=== PATIENT | male | born 1955 | race Caucasian/White ===

== ENCOUNTER 2022-02-15 11:37 | Inpatient (IN) | payer OTHER ==
[~2022-02-15] VITALS: Ht 182.9 cm; Wt 123.0 kg
[~2022-02-15 11:37] MED LIST: ASPI81CH43 GT; ATOR-47 PO; FURO1TAB33 PO; LISI20TA28 PO; METO25TA93 PO; POTA-220 PO; SITA50TA28 PO; TICA90TA PO
[2022-02-15 12:05] LABS: Urine WBC None Seen /hpf (0 - 3)
[2022-02-15 12:10] LABS: Basophils # (auto) 0 10 ^3/uL (0-0.2); Basophils % (auto) 0.7 % (0.0-2.0); Eosinophils # (auto) 0.2 10 ^3/uL (0-0.8); Eosinophils % (auto) 2.9 % (0.0-7.0); Hematocrit 40.8 % (41.0-53.0); Hemoglobin 13.9 g/dL (13.5-17.5); Lymphocytes # (auto) 1.6 10 ^3/uL (0.4-5.4); Lymphocytes % (auto) 21.1 % (10.0-50.0); Mean Corpuscular Hemoglobin 28.8 pg (28.0-32.0); Mean Corpuscular Hgb Conc. 34.1 g/dL (32.0-36.0); Mean Corpuscular Volume 84.7 fL (80.0-100.0); Monocytes # (auto) 0.8 10 ^3/uL (0-1.3); Monocytes % (auto) 11.4 % (0.0-12.0); Neutrophils # (auto) 4.7 10 ^3/uL (1.6-8.6); Neutrophils % (auto) 63.9 % (37.0-80.0); Red Blood Cells 4.81 10^6/uL (4.5-5.90); Red Cell Distribution Width 14.1 % (11.8-14.3); White Blood Cell 7.4 10^3/uL (4.4-10.8)
[2022-02-15 12:27] LABS: Urine Bacteria NONE SEEN /hpf (None Seen); Urine Blood Negative /uL (Negative); Urine Specific Gravity 1.016 (1.001-1.035)
[2022-02-15 12:29] LABS: INR 1.1 (0.9-1.15); Partial Thromboplastin Time 29.5 sec (24.6-33.4)
[2022-02-15 12:33] LABS: Albumin 3.8 g/dL (3.4-5.0); Potassium 4.1 mmol/L (3.5-5.1)
[2022-02-15 12:36] LABS: BUN/Creatinine Ratio 13.8
[2022-02-15 12:39] LABS: Bilirubin, Total 1.6 mg/dL (0.2-1.0); Total Protein 7.6 g/dL (6.4-8.2)
[2022-02-15] MEDS ORDERED: CLOPIDOGREL BISULFATE 75 MG TAB PO ONE (13:15)
[2022-02-15] MEDS ORDERED: HEPARIN SODIUM (PORCINE) 5000 UNITS/ML 1ML VIAL IV ONE (13:15)
[2022-02-15] MEDS ORDERED: HEPARIN DRIP/D5W 100UNITS/ML 250 ML IV SCH ×2 (13:15→23:45)
[2022-02-15 13:55] LABS: INR 1.08 (0.9-1.15); Partial Thromboplastin Time 28.8 sec (24.6-33.4)
[2022-02-15] MEDS ORDERED: ONDANSETRON HCL 4 MG/2 ML VIAL IV PRN (15:15)
[2022-02-15] MEDS ORDERED: METOPROLOL TARTRATE 1MG/1ML-5ML VIAL IV PRN (15:15)
[2022-02-15] MEDS ORDERED: MORPHINE SULFATE INJ 2 MG/ml SYRG IV PRN (15:15)
[2022-02-15] MEDS ORDERED: ACETAMINOPHEN 325 MG TAB PO PRN (15:15)
[2022-02-15] MEDS ORDERED: NITROGLYCERIN 0.4 MG SL TAB SL PRN (15:15)
[2022-02-15] MEDS ORDERED: DEXTROSE (50%) 50ML SYRG IV PRN (15:30)
[2022-02-15 16:13] LABS: Cholesterol 90 mg/dL (< 200); HDL Cholesterol 39 mg/dL (40-59); LDL Cholesterol 44 mg/dL (< 100); Triglycerides 94 mg/dL (< 150)
[2022-02-15] MEDS ORDERED: RIVA10TA PO (17:27)
[2022-02-15] MEDS: ACCU-CHEK COMFORT CURVE STRIP VI SCH ×2 (17:46→22:08)
[2022-02-15] MEDS: InsuLIN REG 1unit/0.01ml Soln (100units/ml) SC SCH ×2 (17:46→22:00)
[2022-02-15] MEDS: ATORVASTATIN 20 MG TAB PO SCH (22:13)
[2022-02-15] MEDS: METOPROLOL TARTRATE 25 MG TAB PO SCH (22:15)
[2022-02-15 23:41] LABS: INR 1.09 (0.9-1.15); Partial Thromboplastin Time 35.3 sec (24.6-33.4)
[2022-02-16 04:12] LABS: Basophils # (auto) 0 10 ^3/uL (0-0.2); Basophils % (auto) 0.4 % (0.0-2.0); Eosinophils # (auto) 0.3 10 ^3/uL (0-0.8); Eosinophils % (auto) 4.4 % (0.0-7.0); Hemoglobin 12.6 g/dL (13.5-17.5); Lymphocytes # (auto) 1.8 10 ^3/uL (0.4-5.4); Lymphocytes % (auto) 28.6 % (10.0-50.0); Mean Corpuscular Hemoglobin 29.1 pg (28.0-32.0); Mean Corpuscular Hgb Conc. 34.2 g/dL (32.0-36.0); Mean Corpuscular Volume 85.1 fL (80.0-100.0); Monocytes # (auto) 0.6 10 ^3/uL (0-1.3); Monocytes % (auto) 9.2 % (0.0-12.0); Neutrophils # (auto) 3.7 10 ^3/uL (1.6-8.6); Neutrophils % (auto) 57.4 % (37.0-80.0); Red Blood Cells 4.35 10^6/uL (4.5-5.90); Red Cell Distribution Width 14.4 % (11.8-14.3); White Blood Cell 6.4 10^3/uL (4.4-10.8)
[2022-02-16 05:04] LABS: Chloride 109 mmol/L (98-107); Potassium 3.6 mmol/L (3.5-5.1); Sodium 141 mmol/L (136-145)
[2022-02-16 05:05] LABS: Anion Gap 11 (5-15); BUN/Creatinine Ratio 15.5; Blood Urea Nitrogen 20 mg/dL (7-18); Calcium 8.6 mg/dL (8.5-10.1); Carbon Dioxide 21 mmol/L (21-32); GFR African American 71 mL/min; GFR Non-African American 59 mL/min; Glucose 89 mg/dL (74-106)
[2022-02-16] MEDS: InsuLIN REG 1unit/0.01ml Soln (100units/ml) SC SCH ×4 (07:00→22:00)
[2022-02-16] MEDS: ACCU-CHEK COMFORT CURVE STRIP VI SCH ×4 (07:01→22:00)
[2022-02-16] MEDS: LISINOPRIL 5 MG TAB PO SCH (10:00)
[2022-02-16] MEDS: ASPirin 81 mg TAB PO SCH (10:00)
[2022-02-16] MEDS: FAMOTIDINE 20 MG TAB PO SCH (10:00)
[2022-02-16] MEDS: METOPROLOL TARTRATE 25 MG TAB PO SCH (10:00)
[2022-02-16] MEDS: CLOPIDOGREL BISULFATE 75 MG TAB PO SCH (10:00)
[2022-02-16 11:03] LABS: INR 1.08 (0.9-1.15); Partial Thromboplastin Time 38.9 sec (24.6-33.4)
[2022-02-16] MEDS ORDERED: HEPARIN DRIP/D5W 100UNITS/ML 250 ML IV SCH ×2 (12:00→20:30)
[2022-02-16 19:02] LABS: INR 1.03 (0.9-1.15)
[2022-02-17] VITALS (7 sets, daily range): BP systolic 135–156; BP diastolic 68–87
[2022-02-17] MEDS: ATORVASTATIN 20 MG TAB PO SCH (00:12)
[2022-02-17] MEDS: METOPROLOL TARTRATE 25 MG TAB PO SCH ×2 (00:13→10:09)
[2022-02-17 02:39] LABS: INR 1.03 (0.9-1.15)
[2022-02-17] MEDS ORDERED: LOSA25TA38 PO (02:55)
[2022-02-17] MEDS ORDERED: INSU1INJ13 SC (02:55)
[2022-02-17] MEDS ORDERED: SEMA4INJ SC (02:55)
[2022-02-17] MEDS ORDERED: EMPA1TAB PO (02:55)
[2022-02-17 06:04] LABS: Basophils # (auto) 0.1 10 ^3/uL (0-0.2); Basophils % (auto) 1.4 % (0.0-2.0); Eosinophils # (auto) 0.3 10 ^3/uL (0-0.8); Eosinophils % (auto) 4.2 % (0.0-7.0); Hematocrit 37.5 % (41.0-53.0); Hemoglobin 12.7 g/dL (13.5-17.5); Lymphocytes # (auto) 1.3 10 ^3/uL (0.4-5.4); Lymphocytes % (auto) 20.7 % (10.0-50.0); Mean Corpuscular Hemoglobin 28.8 pg (28.0-32.0); Mean Corpuscular Hgb Conc. 33.9 g/dL (32.0-36.0); Monocytes # (auto) 0.6 10 ^3/uL (0-1.3); Monocytes % (auto) 9.1 % (0.0-12.0); Neutrophils # (auto) 4.2 10 ^3/uL (1.6-8.6); Neutrophils % (auto) 64.6 % (37.0-80.0); Nucleated Red Blood Cells % 0.1 %; Red Blood Cells 4.42 10^6/uL (4.5-5.90); Red Cell Distribution Width 13.8 % (11.8-14.3); White Blood Cell 6.5 10^3/uL (4.4-10.8)
[2022-02-17 06:26] LABS: Potassium 3.7 mmol/L (3.5-5.1)
[2022-02-17 06:30] LABS: BUN/Creatinine Ratio 16.8; Calcium 8.7 mg/dL (8.5-10.1)
[2022-02-17] MEDS: InsuLIN REG 1unit/0.01ml Soln (100units/ml) SC SCH ×2 (07:00→11:32)
[2022-02-17] MEDS: ACCU-CHEK COMFORT CURVE STRIP VI SCH ×2 (07:06→11:28)
[2022-02-17] MEDS ORDERED: IOHEXOL 350 MG/ML 100ML IJ ONE (07:27)
[2022-02-17] MEDS ORDERED: IODIXANOL 320MG/ML 100ML BTL IV ONE (07:27)
[2022-02-17] MEDS ORDERED: LIDOCAINE 2%HCL (LOCAL ANESTH.) INJ 10ml MDV ONE (07:27)
[2022-02-17] MEDS ORDERED: HEPARIN SODIUM (PORCINE) 5000 UNITS/ML 1ML VIAL ONE (07:33)
[2022-02-17] MEDS ORDERED: ANGIOMAX 250 MG VIAL IV ONE (07:33)
[2022-02-17] MEDS ORDERED: VERAPAMIL 2.5MG/ML INJ 2ML VIAL IV ONE (07:33)
[2022-02-17] MEDS ORDERED: fentaNYL CITRATE 100 MCG/2 ML VL ONE (07:33)
[2022-02-17] MEDS ORDERED: MIDAZOLAM HCL 2MG/2ML 2ml VIAL (1mg/ml) ONE (07:34)
[2022-02-17] MEDS ORDERED: SODIUM CHL 0.9% 0 ML ONE (07:34)
[2022-02-17] MEDS: FAMOTIDINE 20 MG TAB PO SCH (10:09)
[2022-02-17] MEDS: ASPirin 81 mg TAB PO SCH (10:09)
[2022-02-17] MEDS: LISINOPRIL 5 MG TAB PO SCH (10:10)
[2022-02-17] MEDS: CLOPIDOGREL BISULFATE 75 MG TAB PO SCH (10:10)
[2022-02-17 10:26] LABS: INR 1.03 (0.9-1.15); Partial Thromboplastin Time 26.8 sec (24.6-33.4)
== END 2022-02-17 13:09 | disposition home or self-care (01) | DRG 281 ==
LOC: ER 11:37 → TELE 15:13 → TELE-WESTW 02-17 01:29
PROVIDERS: ADMIT Hospitalist; ATTEND Hospitalist
PROC: 4A023N7 Measurement of Cardiac Sampling and Pressure, Left Heart, Percutaneous Approach (ICD-10-PCS; principal; 2022-02-17)
PROC: B211YZZ Fluoroscopy of Multiple Coronary Arteries using Other Contrast (ICD-10-PCS; 2022-02-17)
PROC: B215YZZ Fluoroscopy of Left Heart using Other Contrast (ICD-10-PCS; 2022-02-17)
PROC: 4B02XTZ Measurement of Cardiac Defibrillator, External Approach (ICD-10-PCS; 2022-02-17)
DX: I21.4 Non-ST elevation (NSTEMI) myocardial infarction (principal); I42.8 Other cardiomyopathies; E11.9 Type 2 diabetes mellitus without complications; F17.210 Nicotine dependence, cigarettes, uncomplicated; I10 Essential (primary) hypertension; I25.10 Atherosclerotic heart disease of native coronary artery without angina pectoris; E78.5 Hyperlipidemia, unspecified; I48.91 Unspecified atrial fibrillation; Z20.822 Contact with and (suspected) exposure to COVID-19; Z79.01 Long term (current) use of anticoagulants; Z82.49 Family history of ischemic heart disease and other diseases of the circulatory system; Z83.3 Family history of diabetes mellitus; Z95.5 Presence of coronary angioplasty implant and graft; Z95.810 Presence of automatic (implantable) cardiac defibrillator
CPT/HCPCS: 36415; 71045; 80048; 80053; 80061; 81001; 82962; 83036; 83880; 84484; 85025; 85610; 85730; 87426; 93005; 93306; 93458; 96365; 96376; 99152; 99291; G0378; J1815; J2001; J2250; J2405; Q9967

== ENCOUNTER 2024-05-05 12:39 | Inpatient (IN) | payer OTHER ==
[~2024-05-05] VITALS: Ht 365.8 cm; Wt 123.6 kg
[~2024-05-05 12:39] MED LIST changes: +EMPA1TAB PO; +INSU1INJ13 SC; -LISI20TA28 PO; +LOSA-533 PO; +RIVA10TA PO; +SEMA4INJ SC; -TICA90TA PO
--- NOTE | 2024-05-05 13:03 | ECG ---
[facility] Test Date: 2024-05-05 Test Time: 12:46:36 Pat Name: DAGO PERRY Department: ER Room: 0223T Gender: M Grease Monkey: [place] : 1955 Requested By: EMERGENCY EMERGENCY Order Number: [id number] Reading MD: Rahul Potts Measurements Intervals [place] Rate: 77 P: 92 NC: 141 QRS: 261 QRSD: 208 T: 70 QT: 478 QTc: 542 Interpretive Statements A-V dual-paced complexes w/ some inhibition No further analysis attempted due to paced rhythm Electronically Signed On 05-11-2024 16:54:15 PST by Rahul Potts Please click the below link to view image of tracing.
--- NOTE | 2024-05-05 13:03 | ED.PDOC ---
HPI Comments 68 year old male presents to the ED with chief complaint of chest pain. Patient reports that he has been experiencing chest pain for the past 2 hours, not improving over time and with associated SOB since last night. Patient relays that he has had similar chest pain in the past, but it normally self-resolves after a few minutes. Patient states he had the same symptoms before when his pacemaker was malfunctioning 5 years ago. Patient denies any N/V, dizziness, headache, blurred vision, numbness, or weakness. Time Seen by MD: 12:56 Reviewed Notes: Nurses Notes, Medications, Allergies Allergies: Coded Allergies: NO KNOWN ALLERGIES (Unverified , 04/29/19) Home Meds Reported Medications Semaglutide (Ozempic) 4 Mg/3 Ml Inj, 4 MG SC, INJ 02/17/22 Insulin Degludec (Tresiba Flextouch) 200 Unit/Ml Inj, 200 UNIT SC, INJ 02/17/22 Empagliflozin (Jardiance) 10 Mg Tab, 10 MG PO, TAB 02/17/22 Losartan Potassium (Losartan Potassium) 25 Mg Tab, 25 MG PO DAILY for 30 Days, MG 02/17/22 Rivaroxaban (XARELTO) 10 Mg Tab, 15 MG PO DAILY, TAB 02/15/22 Aspirin (Asa) 81 Mg Ch, 81 MG GT DAILY, TAB.CHEW 04/29/19 Sitagliptin-Metformin Hcl (JANUMET XR) 1 Tab Tab, 1 TAB PO BIDPC, TAB 04/29/19 Atorvastatin Calcium (ATORVASTATIN CALCIUM) 80 Mg Tab, 1 TAB PO DAILY, #30 TAB 5 Refills 04/29/19 Metoprolol Succinate (Metoprolol Succinate Er) 25 Mg Tab, 25 MG PO DAILY, TAB 04/29/19 Potassium Chloride (Klor-Con M20) 20 Meq Tab, 20 MEQ PO DAILY, TAB 04/29/19 Furosemide (Lasix) 20 Mg Tb, 1 TAB PO DAILY, #90 TAB 1 Refill 04/29/19 Information Source: Patient Mode of Arrival: Ambulatory Severity: Moderate Timing: Hours Duration: Since onset Prehospital treatment: None Location: Chest (L) Radiation: No Radiation Quality: Sharp Onset: At Rest Cardiac Risk Factors: HTN PE Risk Factors: None History of: Similar pain in past, NV Associated Signs and Symptoms: SOB Past Medical History PAST MEDICAL HISTORY: CAD, DM, HTN, NV Surgical History: Pacemaker, PTCA Family History Family History: Reviewed,noncontributory to illness, No family hx of Cancer, No family hx of Liver nory Social History Smoker: Cigarettes Alcohol: Occasionally Drugs: Denies Drug Use Lives In: Home Constitutional: denies: chills, diaphoresis, fatigue, fever, malaise, sweats, weakness, others EENTM: denies: blurred vision, double vision, ear bleeding, ear discharge, ear drainage, ear pain, ear ringing, eye pain, eye redness, hearing loss, mouth pain, mouth swelling, nasal discharge, nose bleeding, nose congestion, nose pain, photophobia, tearing, throat pain, throat swelling, voice changes, others Respiratory: reports: shortness of breath; denies: cough, hemoptysis, orthopnea, SOB at rest, SOB with excertion, stridor, wheezing, others Cardiovascular: reports: chest pain; denies: dizzy spells, diaphoresis, Dyspnea on exertion, edema, irregular heart beat, left arm pain, lightheadedness, palpitations, PND, syncope, others Gastrointestinal: denies: abdomen distended, abdominal pain, blood streaked bowels, constipated, diarrhea, dysphagia, difficulty swallowing, hematemesis, melena, nausea, poor appetite, poor fluid intake, rectal bleeding, rectal pain, vomiting, others Genitourinary: denies: burning, dysuria, flank pain, frequency, hematuria, incontinence, penile discharge, penile sore, pain, testicle pain, testicle swelling, urgency, others Neurological: denies: dizziness, fainting, headache, left sided numbness, left sided weakness, numbness, paresthesia, pre-existing deficit, right sided numbness, right sided weakness, seizure, speech problems, tingling, tremors, weakness, others Musculoskeletal: denies: back pain, gout, joint pain, joint swelling, muscle pain, muscle stiffness, neck pain, others Integumetry: denies: bruises, change in color, change in hair/nails, dryness, laceration, lesions, lumps, rash, wounds, others Allergic/Immunocompromised: denies: Difficulty Healing, Frequent Infections, Hives, Itching, others Hematologic/Lymphatic: denies: anemia, blood clots, easy bleeding, easy bruising, swollen glands, others Endocrine: denies: excessive hunger, excessive sweating, excessive thirst, excessive urination, flushing, intolerance to cold, intolerance to heat, unexplained weight gain, unexplained weight loss, others Psychiatric: denies: anxiety, bipolar disorder, depression, hopeless, panic disorder, schizophrenia, sleepless, suicidal, others All Other Systems: Reviewed and Negative Physical Exam General Appearance: No Apparent Distress, Normal HEENT: Normal ENT Inspection, PERRL/EOMI Neck: Full Range of Motion, Non-Tender, Normal, Normal Inspection Respiratory: Chest Non-Tender, Lungs Clear, No Accessory Muscle Use, No Respiratory Distress, Normal Breath Sounds Cardiovascular: No Edema, No JVD, No Murmur, No Gallop, Normal Peripheral Pulses, Regular Rate/Rhythm Breast Exam: Deferred Gastrointestinal: No Organomegaly, Non Tender, No Pulsatile Mass, Normal Bowel Sounds, Soft Genitalia: Deferred Pelvic: Deferred Rectal: Deferred Extremities: No calf tenderness, Normal capillary refill, Normal inspection, Normal range of motion, Non-tender, No pedal edema Musculoskeletal : Apperance: Normal Neurologic: Alert, medical staff services manager II-XII nml as Tested, No Motor Deficits, Normal Affect, Normal Mood, No Sensory Deficits Cerebellar Function: Normal Reflexes: Normal Skin: Dry, Normal Color, Warm Lymphatic: No Adenopathy Was a procedure done? Was a procedure done?: No CP Differential Dx Differential Diagnosis: NV, PAC's, PVC's Differential Diagnosis: HTN Essential, HTN Accelerated Differential Diagnosis: Gastritis, Myocardial Infarction, Pericarditis X-Ray, Labs, Meds, VS Vital Signs Date Time Temp Pulse Resp B/P (MAP) Pulse Ox O2 Delivery O2 Flow Rate FiO2 05/05/24 17:17 98.0 95 16 143/73 (96) 95 98.0 05/05/24 14:36 83 05/05/24 12:46 77 05/05/24 12:42 98.2 77 18 138/75 (96) 94 Lab Test 05/05/24 16:30 05/05/24 14:06 05/05/24 12:53 Range/Units Troponin I High Sensitivity 373 *H 380 *H 364 *H </=54 ng/L White Blood Count 8.9 4.4-10.8 10^3/uL Red Blood Count 5.19 4.5-5.90 10^6/uL Hemoglobin 14.9 13.5-17.5 g/dL Hematocrit 44.2 41.0-53.0 % Mean Corpuscular Volume 85.3 80.0-100.0 fL Mean Corpuscular Hemoglobin 28.7 28.0-32.0 pg Mean Corpuscular Hemoglobin Concent 33.6 32.0-36.0 g/dL Red Cell Distribution Width 13.7 11.8-14.3 % Platelet Count 178 140-450 10^3/uL Mean Platelet Volume 8.6 6.9-10.8 fL Neutrophils (%) (Auto) 74.8 37.0-80.0 % Lymphocytes (%) (Auto) 13.6 10.0-50.0 % Monocytes (%) (Auto) 8.2 0.0-12.0 % Eosinophils (%) (Auto) 2.7 0.0-7.0 % Basophils (%) (Auto) 0.7 0.0-2.0 % Neutrophils # (Auto) 6.6 1.6-8.6 10 ^3/uL Lymphocytes # (Auto) 1.2 0.4-5.4 10 ^3/uL Monocytes # (Auto) 0.7 0-1.3 10 ^3/uL Eosinophils # (Auto) 0.2 0-0.8 10 ^3/uL Basophils # (Auto) 0.1 0-0.2 10 ^3/uL Nucleated Red Blood Cells 0.1 % Sodium Level 140 136-145 mmol/L Potassium Level 4.0 3.5-5.1 mmol/L Chloride Level 107 98-107 mmol/L Carbon Dioxide Level 23 20-31 mmol/L Anion Gap 10 5-15 Blood Urea Nitrogen 18 9-23 mg/dL Creatinine 1.50 H 0.700-1.30 mg/dL Glomerular Filtration Rate Calc 50 >90 mL/min BUN/Creatinine Ratio 12.0 10.0-20.0 Serum Glucose 190 H 74-106 mg/dL Calcium Level 9.4 8.7-10.4 mg/dL B-Type Natriuretic Peptide 862.38 0-100 pg/mL Time of 1ST Reevaluation: 13:56 Reevaluation 1ST: Unchanged Patient Education/Counseling: Diagnosis, Treatment Family Education/Counseling: No Family Present Departure 1 Departure Time of Disposition: 17:20 (Patient presented with chest pain that was concerning for possible STEMI, ACS, PE, Pneumonia, Muscle Strain, COPD, Dissection. Data: 1. I ordered and reviewed the result of at least 3 labs including a CBC, BMP, and Troponin. 2. I independently interpreted the following tests: EKG which shows sinus arrhythmia and Chest X-ray which shows cardiomegaly.Risk:This patient has a high risk of morbidity due to further diagnostic testing or treatment and may suffer from an acute cardiac or respiratory disorder. Workup reveals concern for ACS and patient should be admitted for further workup and possible expert consultation. ) Impression: Primary Impression: Acute chest pain Additional Impression: Shortness of breath Disposition: ADMITTED INPATIENT Admit to: Med Surg Condition: Serious Critical Care Note Critical Care Time?: Yes Critical care comment: Acute chest pain Authorized and Performed by: Maya Carlson MD Total critical care time: Approximately 43 minutes Due to a high probability of clinically significant, life threatening deterioration, the patient required my highest level of preparedness to intervene emergently and I personally spent this critical care time directly and personally managing the patient. This critical care time included obtaining a history; examining the patient; pulse oximetry; ordering and review of studies; arranging urgent treatment with development of a management plan; evaluation of patient's response to treatment; frequent reassessment; and, discussions with other providers. This critical care time was performed to assess and manage the high probability of imminent, life-threatening deterioration that could result in multi-organ failure. It was exclusive of separately billable procedures and treating other patients and teaching time. Please see my other sections and the rest of the note for further information on patient assessment and treatment. Stability Stability form required: No Heart Score Heart Score: Heart Score Response (Comments) Value History Highly Suspicious 2 EKG Normal 0 Age >65 2 Risk Factors >3 or Hx ASHD 2 Troponin Normal limit 0 Total 6 I personally scribed for MAYA CARLSON MD ([email or web address]) on 05/05/24 at 13:03. Hortencia ctronically submitted by Jeramy Hoyos ([email or web address]). MAYA CARLSON MD May 05, 2024 13:03
[2024-05-05 13:32] LABS: Sodium 140 mmol/L (136-145)
[2024-05-05 13:33] LABS: Anion Gap 10 (5-15); Carbon Dioxide 23 mmol/L (20-31)
[2024-05-05 13:34] LABS: Calcium 9.4 mg/dL (8.7-10.4)
[2024-05-05 13:37] LABS: Chloride 107 mmol/L (98-107)
[2024-05-05 13:39] LABS: Blood Urea Nitrogen 18 mg/dL (9-23)
[2024-05-05 13:49] LABS: Basophils # (auto) 0.1 10 ^3/uL (0-0.2); Basophils % (auto) 0.7 % (0.0-2.0); Eosinophils # (auto) 0.2 10 ^3/uL (0-0.8); Eosinophils % (auto) 2.7 % (0.0-7.0); Hematocrit 44.2 % (41.0-53.0); Hemoglobin 14.9 g/dL (13.5-17.5); Lymphocytes # (auto) 1.2 10 ^3/uL (0.4-5.4); Lymphocytes % (auto) 13.6 % (10.0-50.0); Mean Corpuscular Hemoglobin 28.7 pg (28.0-32.0); Mean Corpuscular Hgb Conc. 33.6 g/dL (32.0-36.0); Mean Corpuscular Volume 85.3 fL (80.0-100.0); Monocytes # (auto) 0.7 10 ^3/uL (0-1.3); Monocytes % (auto) 8.2 % (0.0-12.0); Neutrophils # (auto) 6.6 10 ^3/uL (1.6-8.6); Neutrophils % (auto) 74.8 % (37.0-80.0); Nucleated Red Blood Cells % 0.1 %; Platelet Count (auto) 178 10^3/uL (140-450); Red Blood Cells 5.19 10^6/uL (4.5-5.90); Red Cell Distribution Width 13.7 % (11.8-14.3); White Blood Cell 8.9 10^3/uL (4.4-10.8)
[2024-05-05 13:53] LABS: Glucose 190 mg/dL (74-106)
--- NOTE | 2024-05-05 14:09 | DVH ---
CHEST RADIOGRAPH Indication: cp Technique: Single frontal view of the chest was obtained Comparison: CHEST PORTABLE on DOS: 02/15/22 FINDINGS: Lines and Tubes: Left sided pacemaker/aicd Lungs: No focal consolidation. Pleura: No effusion. No pneumothorax. Cardiomediastinal contours: Cardiomegaly Bones: No acute osseous abnormality. IMPRESSION: Cardiomeagly with mild chf.
[2024-05-05 18:33] LABS: Urine Bacteria FEW /hpf (None Seen); Urine Blood TRACE /uL (Negative); Urine Clarity Clear (Clear); Urine Color Light-Yellow (Yellow); Urine Protein, UAD 1+ (Negative); Urine Specific Gravity 1.029 (1.001-1.035); Urine Squamous Epithelial Cell None Seen /hpf (<5); Urine Urobilinogen Normal (Negative)
[2024-05-05 19:20] LABS: Urine WBC 5 /HPF (0-3)
[2024-05-05] MEDS ORDERED: ACETAMINOPHEN 325 MG TAB PO PRN (21:00)
[2024-05-05] MEDS ORDERED: MORPHINE SULFATE INJ 2 MG/ml SYRG IV PRN ×2 (21:00)
[2024-05-05] MEDS ORDERED: HYDROcodone-ACET 5/325MG TAB PO PRN (21:00)
[2024-05-05] MEDS ORDERED: DEXTROSE (50%) 50ML SYRG IV PRN (21:00)
[2024-05-05] MEDS ORDERED: NITROGLYCERIN 0.4 MG SL TAB SL PRN (21:00)
[2024-05-05] MEDS ORDERED: ONDANSETRON HCL 4 MG/2 ML VIAL IV PRN (21:00)
[2024-05-05] MEDS ORDERED: hydrALAZINE HCL 20 MG/ML VL IV PRN (21:00)
[2024-05-05] MEDS ORDERED: DOCUSATE SOD 100 MG CAP PO PRN (21:00)
[2024-05-05 22:02] VITALS: PULSE 61; RESP 14; O2SAT 97
[2024-05-05] MEDS: ACCU-CHEK COMFORT CURVE STRIP VI SCH (22:09)
[2024-05-05] MEDS: InsuLIN REG 1unit/0.01ml Soln (100units/ml) SC SCH (22:22)
[2024-05-05 23:24] VITALS: BP 141/71; PULSE 62; RESP 18; TEMP 98; O2SAT 96
[2024-05-06] VITALS (9 sets, daily range): BP systolic 108–136; BP diastolic 48–77; PULSE 60–71; RESP 16–20; TEMP 97.5–98.3; O2SAT 93–98
--- NOTE | 2024-05-06 04:07 | DVHHP2 ---
YESENIA ISIDRO WAREDRESSER 05/06/24 0407: History of Present Illness Reason for Visit: Shortness of breath History of Present Illness 68-year-old male with medical history of AICD, CHF, hypertension, MN with stents Presents with complaints of worsening Chest pain and shortness of breath Times two days. Patient states he suddenly felt Chest pain and shortness of breath Two hours SLAT TWISTER prompting him to come to the emergency department. Patient also Endorses feeling increased shortness of breath after walking short distances. Patient states his product evangelist is Dr. Morris. Denies fevers, chills, Dizziness, nausea, vomiting, Increase leg swelling Cardiovascular: CAD, CHF, HTN, MN, hyperipidemia Endocrine: Diabetes Smoke: No Drugs: None Lives: with Family Review of Systems Constitutional: No: Fever, Chills, Sweats, Weakness, Malaise, Other Eyes: No: Pain, Vision change, Conjunctivae inflammation, Eyelid inflammation, Other, Redness ENT: No: Ear pain, Ear discharge, Nose pain, Nose discharge, Nose congestion, Mouth pain, Mouth swelling, Throat pain, Throat swelling, Other Respiratory: Shortness of breath, SOB with excertion; No: Cough, Dry, Wheezing, Hemoptysis, Pleuritic Pain, Sputum, Wheezing, Other Cardiovascular: Chest Pain; No: Palpitations, Orthopnea, Paroxysmal Noc. Dyspnea, Edema, Lt Headedness, Other Gastrointestinal: No: Nausea, Vomiting, Abdominal Pain, Diarrhea, Constipation, Melena, Hematochezia, Other Genitourinary: No Dysuria, No Frequency, No Incontinence, No Hematuria, No Retention, No Other Musculoskeletal: No: other, neck pain, shoulder pain, arm pain, back pain, hand pain, leg pain, foot pain Skin: No: Rash, Lesions, Jaundice, Bruising, Other Neurological: No: Weakness, Numbness, Incoordination, Change in speech, Co nfusion, Seizures, Other Allergies: Coded Allergies: NO KNOWN ALLERGIES (Unverified , 04/29/19) Medications Current Medications Medications Dose Ordered Sig/Faizan Route Start Time Stop Time Status Last Admin Dose Admin Docusate Sodium 100 mg BIDPRN PRN PO 05/05/24 21:00 Acetaminophen 650 mg Q6HP PRN PO 05/05/24 21:00 Acetaminophen/ Hydrocodone Bitart 1 tab Q6HPRN PRN PO 05/05/24 21:00 Ondansetron HCl 4 mg Q4HP PRN IV 05/05/24 21:00 Morphine Sulfate 2 mg Q4HPRN PRN IV 05/05/24 21:00 Enoxaparin Sodium 40 mg DAILY SC 05/06/24 10:00 Nitroglycerin 0.4 mg Q5MINP PRN SL 05/05/24 21:00 Morphine Sulfate 2 mg Q30M PRN IV 05/05/24 21:00 Diagnostic Test (Pha) 1 strip ACHS 05/05/24 22:00 05/05/24 22:09 1 STRIP Insulin Human Regular ACHS SC 05/05/24 22:00 05/05/24 22:22 6 UNITS Dextrose 50 ml UD PRN IV 05/05/24 21:00 Atorvastatin Calcium 80 mg DAILY PO 05/06/24 10:00 Aspirin 81 mg DAILY PO 05/06/24 10:00 Metoprolol Succinate 25 mg DAILY PO 05/06/24 10:00 Furosemide 20 mg BID PO 05/06/24 09:00 Hydralazine HCl 10 mg Q4HP PRN IV 05/05/24 21:00 Exam Vital Signs Vital Signs Date Time Temp Pulse Resp B/P (MAP) Pulse Ox O2 Delivery O2 Flow Rate FiO2 05/06/24 01:00 98.1 65 18 125/70 (88) 95 98.1 05/06/24 00:17 Room Air* 0 21 General Appearance: Alert, Oriented X3, Cooperative, moderate distress HEENT: Atraumatic, PERRLA, EOMI Respiratory: Clear to auscultation, Normal air movement Cardiovascular: Regular rate, Normal S1, Normal S2 Abdominal: Normal bowel sounds, Soft, No tenderness Extremities: No clubbing, No cyanosis, Normal pulses Skin: No rashes, No breakdown Neuro: Normal speech, Strength at 5/5 X4 ext Psych/Mental Status: Mental status NL, Mood NL Labs/Xrays Labs Test 05/05/24 22:08 05/05/24 17:44 05/05/24 16:30 05/05/24 12:53 Range/Units POC Glucose 287 H 70-106 mg/dl Urine Color Light-yellow Yellow Urine Clarity Clear Clear Urine pH 5.0 5.0-9.0 Urine Specific [place] 1.029 1.001-1.035 Urine Protein 1+ H Negative Urine Ketones Negative Negative Urine Blood Trace H Negative /uL Urine Nitrite Negative Negative Urine Bilirubin Negative Negative Urine Urobilinogen Normal Negative mg/dL Urine Leukocyte Esterase Negative Negative /uL Urine RBC 2 0 - 3 /hpf Urine Microscopic WBC 5 H 0-3 /HPF Urine Squamous Epithelial Cells None seen <5 /hpf Urine Bacteria Few H None Seen /hpf Urine Glucose 4+ H Normal mg/dL Troponin I High Sensitivity 373 *H </=54 ng/L White Blood Count 8.9 4.4-10.8 10^3/uL Red Blood Count 5.19 4.5-5.90 10^6/uL Hemoglobin 14.9 13.5-17.5 g/dL Hematocrit 44.2 41.0-53.0 % Mean Corpuscular Volume 85.3 80.0-100.0 fL Mean Corpuscular Hemoglobin 28.7 28.0-32.0 pg Mean Corpuscular Hemoglobin Concent 33.6 32.0-36.0 g/dL Red Cell Distribution Width 13.7 11.8-14.3 % Platelet Count 178 140-450 10^3/uL Mean Platelet Volume 8.6 6.9-10.8 fL Neutrophils (%) (Auto) 74.8 37.0-80.0 % Lymphocytes (%) (Auto) 13.6 10.0-50.0 % Monocytes (%) (Auto) 8.2 0.0-12.0 % Eosinophils (%) (Auto) 2.7 0.0-7.0 % Basophils (%) (Auto) 0.7 0.0-2.0 % Neutrophils # (Auto) 6.6 1.6-8.6 10 ^3/uL Lymphocytes # (Auto) 1.2 0.4-5.4 10 ^3/uL Monocytes # (Auto) 0.7 0-1.3 10 ^3/uL Eosinophils # (Auto) 0.2 0-0.8 10 ^3/uL Basophils # (Auto) 0.1 0-0.2 10 ^3/uL Nucleated Red Blood Cells 0.1 % Sodium Level 140 136-145 mmol/L Potassium Level 4.0 3.5-5.1 mmol/L Chloride Level 107 98-107 mmol/L Carbon Dioxide Level 23 20-31 mmol/L Anion Gap 10 5-15 Blood Urea Nitrogen 18 9-23 mg/dL Creatinine 1.50 H 0.700-1.30 mg/dL Glomerular Filtration Rate Calc 50 >90 mL/min BUN/Creatinine Ratio 12.0 10.0-20.0 Serum Glucose 190 H 74-106 mg/dL Calcium Level 9.4 8.7-10.4 mg/dL B-Type Natriuretic Peptide 862.38 0-100 pg/mL Assessment/Plan Assessment/Plan Elevated troponin Hypertension DM with elevated blood glucose Hx CHF Hx AICD Plan Admit telemetry Cardiology consult. Echocardiogram. ASA, Statin. Continue home medication. As needed anti-hypertensive for optimal BP management. Blood glucose checks ACHS with regular insulin sliding scale GI ppx protonix / DVT ppx lovenox Plan discussed with: Patient My Orders Orders - YESENIA ISIDRO NP Procedure Category Date Status Time Admit ADMIT 05/05/24 Transmitted 20:50 Code Status CODE 05/05/24 Transmitted 20:50 Vital Signs KIARA 05/05/24 In Process 20:50 Review Orders With KIARA 05/05/24 In Process Adm. 20:50 Encourage Activity As KIARA 05/05/24 In Process Tolerate 20:50 Consistent DIET 05/06/24 Transmitted Carb(Ccho)Diabetes Breakfast Oxygen By Face Mask RT 05/05/24 Transmitted 20:50 Docusate Sodium PHA 05/05/24 In Process Capsule (Colace 21:00 Acetaminophen Tablet PHA 05/05/24 In Process (Tylenol Tablet) 21:00 Notify Of Changes KIARA 05/05/24 In Process From Base 20:50 Advance Directive KIARA 05/05/24 In Process 20:50 Echo 2d Mode Cardiac US 05/05/24 Logged DOP 20:50 Basic Metabolic Panel LAB 05/06/24 Logged 05:00 Basic Metabolic Panel LAB 05/07/24 Verified 05:00 Basic Metabolic Panel LAB 05/08/24 Verified 05:00 Basic Metabolic Panel LAB 05/09/24 Verified 05:00 Complete Blood Count LAB 05/06/24 Logged 05:00 Complete Blood Count LAB 05/07/24 Verified 05:00 Complete Blood Count LAB 05/08/24 Verified 05:00 Complete Blood Count LAB 05/09/24 Verified 05:00 Complete Blood Count LAB 05/10/24 Verified 05:00 Patient Condition ORDERS 05/05/24 Transmitted 20:50 Allergies KIARA 05/05/24 In Process 20:50 Hydrocodone-Acet PHA 05/05/24 In Process 5/325mg Tab ([place] 21:00 Ondansetron Hcl PHA 05/05/24 In Process (Zofran) 21:00 Morphine Sulfate PHA 05/05/24 In Process Injection 21:00 Enoxaparin Sodium PHA 05/06/24 In Process (Lovenox) 10:00 Sequential KIARA 05/05/24 In Process Compression Device Nitroglycerin PHA 05/05/24 In Process Sublingual (Ntrostat 21:00 Morphine Sulfate PHA 05/05/24 In Process Injection 21:00 Stat Ekg For Chest KIARA 05/05/24 In Process Pain 20:50 Notify Md Of Changes KIARA 05/05/24 In Process From Base 20:50 Quarry Supervisor For KIARA 05/05/24 In Process 24 Hours 20:50 Emergency Dysrhythmia KIARA 05/05/24 In Process Protocol 20:50 Rhythm Strips Once KIARA 05/05/24 In Process Every Shift 20:50 Oxygen By Nasal RT 05/05/24 Transmitted Cannula 20:50 Glucose Blood PHA 05/05/24 In Process (Accu-Chek Comfort 22:00 Insulin R (Human) PHA 05/05/24 In Process (Insulin R) 22:00 Dextrose 50% Syringe PHA 05/05/24 In Process 21:00 Atorvastatin (Lipitor) PHA 05/06/24 In Process 10:00 Aspirin Tablet PHA 05/06/24 In Process 10:00 Metoprolol Xl PHA 05/06/24 In Process Succinate (Toprol Xl) 10:00 Furosemide Tablet PHA 05/06/24 In Process (Lasix Tablet) 09:00 * Cardiology Consult CONS 05/05/24 Transmitted 20:50 Hydralazine Injection PHA 05/05/24 In Process (Apresoline Inject 21:00 Date of Service: May 06, 2024 Billing Provider: LUZ JACOBSEN MD Common Visit Codes: NOT BILLABLE LUZ JACOBSEN MD 05/06/24 1207: Review of Systems Allergies: Coded Allergies: NO KNOWN ALLERGIES (Unverified , 04/29/19) Assessment/Plan Assessment/Plan Patient's chart is reviewed and discussed with the nurse practitioner. I agree with his evaluation, documentation, assessment and care plan as outlined. Plan discussed with: YESENIA Gomez WAREDRESSER May 06, 2024 04:07 LUZ JACOBSEN MD May 06, 2024 12:07
[2024-05-06 08:09] LABS: Basophils # (auto) 0.1 10 ^3/uL (0-0.2); Basophils % (auto) 1.2 % (0.0-2.0); Eosinophils # (auto) 0.4 10 ^3/uL (0-0.8); Eosinophils % (auto) 5.6 % (0.0-7.0); Hematocrit 40.5 % (41.0-53.0); Hemoglobin 13.6 g/dL (13.5-17.5); Lymphocytes # (auto) 1.2 10 ^3/uL (0.4-5.4); Lymphocytes % (auto) 18.8 % (10.0-50.0); Mean Corpuscular Hemoglobin 28.9 pg (28.0-32.0); Mean Corpuscular Hgb Conc. 33.7 g/dL (32.0-36.0); Mean Corpuscular Volume 85.7 fL (80.0-100.0); Monocytes # (auto) 0.6 10 ^3/uL (0-1.3); Monocytes % (auto) 9.9 % (0.0-12.0); Neutrophils # (auto) 4.1 10 ^3/uL (1.6-8.6); Neutrophils % (auto) 64.5 % (37.0-80.0); Nucleated Red Blood Cells % 0.1 %; Platelet Count (auto) 170 10^3/uL (140-450); Red Blood Cells 4.72 10^6/uL (4.5-5.90); Red Cell Distribution Width 14.1 % (11.8-14.3); White Blood Cell 6.4 10^3/uL (4.4-10.8)
--- NOTE | 2024-05-06 08:09 | DVHINCON2 ---
Date of service: May 06, 2024 History of Present Illness 68 yo M office pt of mine, hx of cad s/p pci, hx of severe CHF with device admitted for sob/ chest pain and elevated trop of 380. ecg shows av paced. pt fe lt he over did it at work last week. Past Medical History reviewed Family History: Cerebrovascular accident (CVA) G8 FATHER Diabetes mellitus G8 FATHER Allergies: Coded Allergies: NO KNOWN ALLERGIES (Unverified , 04/29/19) Home Meds Reported Medications Losartan Potassium (Losartan Potassium) 25 Mg Tab, 25 MG PO DAILY, TAB 05/06/24 Sitagliptin Phosphate (Januvia) 100 Mg Tab, 100 MG PO DAILY, TAB 05/06/24 Meclizine HCl (Meclizine 25) 25 Mg Tab, 25 MG PO HS, TAB 05/06/24 Semaglutide (Ozempic) 4 Mg/3 Ml Inj, 4 MG SC, INJ 02/17/22 Insulin Degludec (Tresiba Flextouch) 200 Unit/Ml Inj, 200 UNIT SC, INJ 02/17/22 Empagliflozin (Jardiance) 10 Mg Tab, 10 MG PO, TAB 02/17/22 Losartan Potassium (Losartan Potassium) 25 Mg Tab, 25 MG PO DAILY for 30 Days, MG 02/17/22 Rivaroxaban (XARELTO) 10 Mg Tab, 15 MG PO DAILY, TAB 02/15/22 Aspirin (Asa) 81 Mg Ch, 81 MG GT DAILY, TAB.CHEW 04/29/19 Sitagliptin-Metformin Hcl (JANUMET XR) 1 Tab Tab, 1 TAB PO BIDPC, TAB 04/29/19 Atorvastatin Calcium (ATORVASTATIN CALCIUM) 80 Mg Tab, 1 TAB PO DAILY, #30 TAB 5 Refills 04/29/19 Metoprolol Succinate (Metoprolol Succinate Er) 25 Mg Tab, 25 MG PO DAILY, TAB 04/29/19 Potassium Chloride (Klor-Con M20) 20 Meq Tab, 20 MEQ PO DAILY, TAB 04/29/19 Furosemide (Lasix) 20 Mg Tb, 1 TAB PO DAILY, #90 TAB 1 Refill 04/29/19 Current Medications Current Medications Medications (Trade) Dose Ordered Sig/Faizan Route PRN Reason Start Time Stop Time Status Last Admin Docusate Sodium (Colace Capsule) 100 mg BIDPRN PRN PO FOR CONSTIPATION 05/05/24 21:00 Acetaminophen (Tylenol Tablet) 650 mg Q6HP PRN PO PAIN SCALE 1-3 OR TEMP>100.4 05/05/24 21:00 Acetaminophen/ Hydrocodone Bitart ([place] 5/325MG Tab) 1 tab Q6HPRN PRN PO MODERATE PAIN (4-6 PAIN SCALE) 05/05/24 21:00 Ondansetron HCl (Zofran) 4 mg Q4HP PRN IV NAUSEA / VOMITING 05/05/24 21:00 Morphine Sulfate 2 mg Q4HPRN PRN IV SEVERE PAIN (7-10 PAIN SCALE) 05/05/24 21:00 Enoxaparin Sodium (Lovenox) 40 mg DAILY SC 05/06/24 10:00 Nitroglycerin (Ntrostat Sublingual) 0.4 mg Q5MINP PRN SL FOR CHEST PAIN 05/05/24 21:00 Morphine Sulfate 2 mg Q30M PRN IV FOR CHEST PAIN 05/05/24 21:00 Diagnostic Test (Pha) (Accu-Chek Comfort Curve T) 1 strip ACHS 05/05/24 22:00 05/06/24 06:25 Insulin Human Regular (InsuLIN R) ACHS SC 05/05/24 22:00 05/05/24 22:22 Dextrose 50 ml UD PRN IV Blood Sugar LESS THAN 60 05/05/24 21:00 Atorvastatin Calcium (Lipitor) 80 mg DAILY PO 05/06/24 10:00 Aspirin 81 mg DAILY PO 05/06/24 10:00 Metoprolol Succinate (Toprol Xl) 25 mg DAILY PO 05/06/24 10:00 Furosemide (Lasix Tablet) 20 mg BID PO 05/06/24 09:00 Hydralazine HCl (Apresoline Injection) 10 mg Q4HP PRN IV SBP > 160 05/05/24 21:00 Review of Systems 10 pt ros otherwise negative Vital Signs Vital Signs Date Time Temp Pulse Resp B/P (MAP) Pulse Ox O2 Delivery O2 Flow Rate FiO2 05/06/24 05:00 97.8 66 18 109/48 (68) 93 97.8 05/06/24 00:17 Room Air* 0 21 Physical Exam nad s1 s2 rrr ctab soft nt/nd +1 edema Labs/Diagnostic Data Labs Test 05/06/24 07:04 05/06/24 06:12 05/05/24 17:44 05/05/24 16:30 Range/Units POC Glucose 109 H 70-106 mg/dl Urine Color Light-yellow Yellow Urine Clarity Clear Clear Urine pH 5.0 5.0-9.0 Urine Specific [place] 1.029 1.001-1.035 Urine Protein 1+ H Negative Urine Ketones Negative Negative Urine Blood Trace H Negative /uL Urine Nitrite Negative Negative Urine Bilirubin Negative Negative Urine Urobilinogen Normal Negative mg/dL Urine Leukocyte Esterase Negative Negative /uL Urine RBC 2 0 - 3 /hpf Urine Microscopic WBC 5 H 0-3 /HPF Urine Squamous Epithelial Cells None seen <5 /hpf Urine Bacteria Few H None Seen /hpf Urine Glucose 4+ H Normal mg/dL Troponin I High Sensitivity 373 *H </=54 ng/L Test 05/05/24 12:53 Range/Units Eosinophils (%) (Auto) 2.7 0.0-7.0 % Eosinophils # (Auto) 0.2 0-0.8 10 ^3/uL Basophils # (Auto) 0.1 0-0.2 10 ^3/uL Nucleated Red Blood Cells 0.1 % B-Type Natriuretic Peptide 862.38 0-100 pg/mL Assessment nstemi acute on chronic nyha class III systolic and diastolic HF ckd htn hl Plan/Recommendation trop is 2/2 to chf with elevated bnp pt had LHC with me 2 years ago, images reviewed, patent lad stent cont HF meds iv lasix cont GDMT Plan discussed with: Patient BRAD RECINOS MD May 06, 2024 08:09
[2024-05-06 08:30] LABS: Chloride 106 mmol/L (98-107); Potassium 3.9 mmol/L (3.5-5.1); Sodium 141 mmol/L (136-145)
[2024-05-06 08:31] LABS: Anion Gap 8 (5-15); Calcium 9.4 mg/dL (8.7-10.4); Carbon Dioxide 27 mmol/L (20-31)
[2024-05-06 08:36] LABS: BUN/Creatinine Ratio 13.6 (10.0-20.0); Blood Urea Nitrogen 19 mg/dL (9-23)
[2024-05-06 08:39] LABS: Glucose 107 mg/dL (74-106)
[2024-05-06] MEDS: ATORVASTATIN 20 MG TAB PO SCH (08:44)
[2024-05-06] MEDS: FUROSEMIDE 20 MG TAB PO SCH (08:46)
[2024-05-06] MEDS: ASPirin 81 mg TAB PO SCH (08:46)
[2024-05-06] MEDS: ENOXAPARIN SOD 40 MG/0.4 ML SYRINGE SC SCH (08:47)
[2024-05-06] MEDS: METOPROLOL SUCCINATE XL 50 MG TAB PO SCH (08:47)
[2024-05-06] MEDS ORDERED: MECL1TAB42 PO (09:13)
[2024-05-06] MEDS ORDERED: SITA100T7 PO (09:13)
[2024-05-06] MEDS ORDERED: LOSA-533 PO (09:13)
--- NOTE | 2024-05-06 14:43 | ECG ---
[facility] Test Date: 2024-05-05 Test Time: 14:36:52 Pat Name: DAGO PERRY Department: ER Room: 0223T B Gender: M Cruise Guide: RIZWANA : 1955 Requested By: DRAKE CHARLES Order Number: [id number] Reading MD: Rahul Potts Measurements Intervals Carlos Rate: 83 P: 86 LA: 146 QRS: 258 QRSD: 201 T: 60 QT: 468 QTc: 550 Interpretive Statements A-V dual-paced complexes w/ some inhibition No further analysis attempted due to paced rhythm Electronically Signed On 05-11-2024 16:54:43 PST by Rahul Potts Please click the below link to view image of tracing.
[2024-05-07 01:00] VITALS: BP 126/73; PULSE 65; RESP 18; TEMP 98.4; O2SAT 97
[2024-05-07 05:00] VITALS: BP 103/46; PULSE 63; RESP 17; TEMP 98.3; O2SAT 96
[2024-05-07 07:44] LABS: Chloride 106 mmol/L (98-107); Potassium 3.6 mmol/L (3.5-5.1); Sodium 140 mmol/L (136-145)
[2024-05-07 07:45] LABS: Anion Gap 12 (5-15); Calcium 9.1 mg/dL (8.7-10.4); Carbon Dioxide 22 mmol/L (20-31)
[2024-05-07 07:50] LABS: BUN/Creatinine Ratio 14.3 (10.0-20.0); Blood Urea Nitrogen 20 mg/dL (9-23)
[2024-05-07 07:55] LABS: Glucose 111 mg/dL (74-106)
[2024-05-07 08:00] VITALS: PULSE 60; PULSE 61; RESP 20; O2SAT 98
[2024-05-07 09:00] VITALS: BP 110/56; PULSE 61; RESP 20; TEMP 98.4; O2SAT 98
[2024-05-07] MEDS ORDERED: FURO1TAB33 PO (12:49)
--- NOTE | 2024-05-07 12:51 | DVHDS2 ---
Discharge Summary Date of Admission May 05, 2024 at 20:50 Date of Discharge: May 07, 2024 Labs/Diagnostic Data: Laboratory Results Test 05/07/24 11:12 05/07/24 06:34 05/06/24 07:04 05/05/24 17:44 POC Glucose 117 mg/dl (70-106) Sodium Level 140 mmol/L (136-145) Potassium Level 3.6 mmol/L (3.5-5.1) Chloride Level 106 mmol/L (98-107) Carbon Dioxide Level 22 mmol/L (20-31) Anion Gap 12 (5-15) Blood Urea Nitrogen 20 mg/dL (9-23) Creatinine 1.40 mg/dL (0.700-1.30) Glomerular Filtration Rate Calc 54 mL/min (>90) BUN/Creatinine Ratio 14.3 (10.0-20.0) Serum Glucose 111 mg/dL (74-106) Calcium Level 9.1 mg/dL (8.7-10.4) White Blood Count 6.4 10^3/uL (4.4-10.8) Red Blood Count 4.72 10^6/uL (4.5-5.90) Hemoglobin 13.6 g/dL (13.5-17.5) Hematocrit 40.5 % (41.0-53.0) Mean Corpuscular Volume 85.7 fL (80.0-100.0) Mean Corpuscular Hemoglobin 28.9 pg (28.0-32.0) Mean Corpuscular Hemoglobin Concent 33.7 g/dL (32.0-36.0) Red Cell Distribution Width 14.1 % (11.8-14.3) Platelet Count 170 10^3/uL (140-450) Mean Platelet Volume 8.3 fL (6.9-10.8) Neutrophils (%) (Auto) 64.5 % (37.0-80.0) Lymphocytes (%) (Auto) 18.8 % (10.0-50.0) Monocytes (%) (Auto) 9.9 % (0.0-12.0) Eosinophils (%) (Auto) 5.6 % (0.0-7.0) Basophils (%) (Auto) 1.2 % (0.0-2.0) Neutrophils # (Auto) 4.1 10 ^3/uL (1.6-8.6) Lymphocytes # (Auto) 1.2 10 ^3/uL (0.4-5.4) Monocytes # (Auto) 0.6 10 ^3/uL (0-1.3) Eosinophils # (Auto) 0.4 10 ^3/uL (0-0.8) Basophils # (Auto) 0.1 10 ^3/uL (0-0.2) Nucleated Red Blood Cells 0.1 % Urine Color Light-yellow (Yellow) Urine Clarity Clear (Clear) Urine pH 5.0 (5.0-9.0) Urine Specific [place] 1.029 (1.001-1.035) Urine Protein 1+ (Negative) Urine Ketones Negative (Negative) Urine Blood Trace /uL (Negative) Urine Nitrite Negative (Negative) Urine Bilirubin Negative (Negative) Urine Urobilinogen Normal mg/dL (Negative) Urine Leukocyte Esterase Negative /uL (Negative) Urine RBC 2 /hpf (0 - 3) Urine Microscopic WBC 5 /HPF (0-3) Urine Squamous Epithelial Cells None seen /hpf (<5) Urine Bacteria Few /hpf (None Seen) Urine Glucose 4+ mg/dL (Normal) Test 05/05/24 16:30 05/05/24 12:53 Troponin I High Sensitivity 373 ng/L (</=54) B-Type Natriuretic Peptide 862.38 pg/mL (0-100) Other Laboratory Tests 05/07/24 06:34 05/06/24 07:04 Brief Hx & Hospital Course: 68-year-old male with medical history of AICD, CHF, hypertension, CO with stents Presents with complaints of worsening Chest pain and shortness of breath Times two days. Patient states he suddenly felt Chest pain and shortness of breath Two hours [employer] prompting him to come to the emergency department. Patient also Endorses feeling increased shortness of breath after walking short distances. Patient states his concierge receptionist is Dr. Recinos. Denies fevers, chills, Dizziness, nausea, vomiting, Increase leg swelling Cardiovascular: CAD, CHF, HTN, CO, hyperipidemia He is admitted and evaluated by his concierge receptionist. Patient BNP levels elevated. Patient noted to be in acute exacerbation of heart failure felt causing his coughing spells with the discomfort from the lungs. Patient educated and counseled regarding restrict oral fluid restriction at home and to limit fluid intake to 1200 mL per 24 hours. He is also advised to check his weights daily and if he has any weight gain more than 2 lb within 2-3 days take extra dose of Lasix and notify his primary care physician. Otherwise while in the hospital patient's symptoms resolved. Troponins have stabilized. He is feeling better back to baseline normal status. Therefore he is being discharged home in stable condition. I have talked with the patient regarding his heart failure, hospital diagnosis, treatment he received, discharge medications, discharge instructions and follow-up plan of care. He has verbalized understanding of these and agree with care plan as mentioned. Consults/Reason for consult Assessment nstemi acute on chronic nyha class III systolic and diastolic HF ckd htn hl Plan/Recommendation trop is 2/2 to chf with elevated bnp pt had LHC with me 2 years ago, images reviewed, patent lad stent cont HF meds iv lasix cont GDMT Plan discussed with: Patient BRAD RECINOS MD May 06, 2024 08:09 Condition at Discharge: Stable Final Diagnosis/Problems List Acute CHF exacerbation, elevated troponin secondary to ischemic demand from heart failure Discharge Disposition: Home Discharge Instruct/Medications Diet: Consistent carbohydrate, Cardiac 2g Na,low cholest Diet comment: To limit your total oral fluid intake to 1200 mL per 24 hours due to heart failure. Activity: No Restrictions, As Tolerated Follow Up/Referral: Follow up with Dr. Recinos concierge receptionist next week for heart failure management Medications: Increase your Lasix to 40 mg daily from 20 mg daily. Continue other home medications as you were taking. Changed Medications: Furosemide (Lasix) 20 Mg Tb 2 TAB PO DAILY, #90 TAB 1 Refill (Changed from: 1 TAB) Continued Medications: Aspirin (Asa) 81 Mg Ch 81 MG GT DAILY, TAB.CHEW Atorvastatin Calcium (Atorvastatin Calcium) 80 Mg Tab 1 TAB PO DAILY, #30 TAB 5 Refills Empagliflozin (Jardiance) 10 Mg Tab 10 MG PO, TAB Insulin Degludec (Tresiba Flextouch) 200 Unit/Ml Inj 200 UNIT SC, INJ Losartan Potassium (Losartan Potassium) 25 Mg Tab 25 MG PO DAILY for 30 Days, MG Meclizine HCl (Meclizine 25) 25 Mg Tab 25 MG PO HS, TAB Metoprolol Succinate (Metoprolol Succinate Er) 25 Mg Tab 25 MG PO DAILY, TAB Potassium Chloride (Klor-Con M20) 20 Meq Tab 20 MEQ PO DAILY, TAB Rivaroxaban (Xarelto) 10 Mg Tab 15 MG PO DAILY, TAB Semaglutide (Ozempic) 4 Mg/3 Ml Inj 4 MG SC, INJ Sitagliptin-Metformin Hcl (Janumet Xr) 1 Tab Tab 1 TAB PO BIDPC, TAB Discontinued Medications: Losartan Potassium (Losartan Potassium) 25 Mg Tab 25 MG PO DAILY, TAB Sitagliptin Phosphate (Januvia) 100 Mg Tab 100 MG PO DAILY, TAB Discharge Statement: "Patient was advised to return to the ER or call 911 if any headaches, dizziness, shortness of breath, chest pain, abdominal pain, bleeding, fevers, or worsening of medical condition. Patient was counseled about treatment plan, medications, possible side effects, patientverbalized understanding. All questions were answered to the best of my ability. This discharge took greater then 30 minutes in planning, reviewing documentation, counseling the patient, and discussing with other team members." ASSESSMENT ASSESSMENT Assessment Acute CHF exacerbation, elevated troponin secondary to ischemic demand from heart failure LUZ JACOBSEN MD May 07, 2024 12:51
[2024-05-07 13:00] VITALS: BP 137/79; PULSE 67; RESP 20; TEMP 97.6; O2SAT 95
[2024-05-07 13:33] VITALS: BP 137/79; PULSE 67; RESP 20; TEMP 97.6; O2SAT 95
== END 2024-05-07 14:55 | disposition home or self-care (01) | DRG 280 ==
LOC: ER 12:39 → OVERFLOW 20:50 → TELE-CENTR 22:44
PROVIDERS: ADMIT Nurse Practitioner Family; ATTEND Nurse Practitioner Family
DX: I21.4 Non-ST elevation (NSTEMI) myocardial infarction (principal); I50.43 Acute on chronic combined systolic (congestive) and diastolic (congestive) heart failure; I13.0 Hypertensive heart and chronic kidney disease with heart failure and stage 1 through stage 4 chronic kidney disease, or unspecified chronic kidney disease; N18.9 Chronic kidney disease, unspecified; E11.22 Type 2 diabetes mellitus with diabetic chronic kidney disease; F17.210 Nicotine dependence, cigarettes, uncomplicated; I25.10 Atherosclerotic heart disease of native coronary artery without angina pectoris; Z79.4 Long term (current) use of insulin; Z79.899 Other long term (current) drug therapy; Z79.82 Long term (current) use of aspirin; Z95.810 Presence of automatic (implantable) cardiac defibrillator; Z82.3 Family history of stroke; Z83.3 Family history of diabetes mellitus; Z95.5 Presence of coronary angioplasty implant and graft
CPT/HCPCS: 36415; 71045; 80048; 81001; 82962; 83880; 84484; 85025; 93005; 93306; 99291; G0378; J1815

== ENCOUNTER 2024-12-24 07:45 | Inpatient (IN) | payer OTHER ==
[~2024-12-24] VITALS: Ht 183.5 cm; Wt 113.0 kg
[~2024-12-24 07:45] MED LIST changes: +INSU100I28 IJ; -RIVA10TA PO
[2024-12-24] MEDS ORDERED: ONDANSETRON HCL 4 MG/2 ML VIAL ONE (08:45)
[2024-12-24] MEDS ORDERED: BUPIVACAINE/DEXTROSE MPF 0.75% 2 ML AMP IT ONE (08:45)
[2024-12-24] MEDS ORDERED: LIDOCAINE 1% INJ PF 5ML AMP ONE (08:45)
[2024-12-24] MEDS ORDERED: PROPOFOL 10 MG/ML 20 ML IV ONE ×2 (08:45→11:16)
[2024-12-24] MEDS ORDERED: GLYCOPYRROLATE 0.2 MG/ML 1ML VIAL ONE (08:45)
[2024-12-24] MEDS ORDERED: KETOROLAC TROMETH 30 MG/ML 1ML VIAL ONE (08:45)
[2024-12-24] MEDS: CELECOXIB 100 MG CAP PO ONE (09:30)
[2024-12-24] MEDS: ACETAMINOPHEN IV 1000 MG/100ML (10MG/ML) IV ONE (09:30)
[2024-12-24] MEDS: GABAPENTIN 300 MG CAP PO ONE (09:30)
[2024-12-24] MEDS: ceFAZolin 2 GM/D5W50ml 50 ML IV ONE (09:53)
[2024-12-24] MEDS: CEFEPIME 1GM/50ML 50 ML IV ONE (09:53)
[2024-12-24] MEDS: TRANEXAMIC ACID 20 ML ONE (09:55)
[2024-12-24] MEDS ORDERED: SODIUM CHLORIDE LOCK 10 ML ONE (10:12)
[2024-12-24] MEDS: VANCOMYCIN HCL 1000 MG VL ONE (10:21)
[2024-12-24] MEDS ORDERED: DEXTROSE (50%) 50ML SYRG IV PRN (12:00)
--- NOTE | 2024-12-24 12:00 | DVHOP2 ---
Operative Report - 2 Report Details Date: 12/24/24 Preop Diagnosis: Left knee degenerative arthritis Postop Diagnosis: Left knee degenerative arthritis Surgeon: Will Hair MD Health Safety Manager: Azam ELIZABETH Anesthesiologist: Eder Romo CRNA Anesthesia: Regional Drains: Yanick closed wound suction dressing Implant: DonJoy size nine femur PS, size nine tibial base plate, size 13 polyethylene, size 35 patella Consent: The patient was informed of the risks and benefits of the procedure. These include but are not limited to complications of anesthesia, postoperative infection, incomplete relief of symptoms, recurrence of symptoms, damage to blood vessels, nerves and tendons, deep venous thrombosis, pulmonary embolism and possible need for repeat surgery in the future. Complications: None Estimated Blood Loss: 100 cc Fluids: See anesthesia record Findings: Varus deformity, osteophytes, denuded cartilage with eburnated bone Indications for Surgery: Left knee degenerative arthritis with severe pain and functional impairment de spite nonoperative management Name of Procedure Performed Left total knee arthroplasty Procedure Details Procedure Details: The patient was brought to the operating room and placed on the table in the supine position after being given spinal anesthetic with adequate analgesia obtained. Surgical timeout was performed verifying patient, laterality and procedure Preop patient received IV cefepime IV Ancef and IV tranexamic acid. Tourniquet was applied to the lower extremity. Lower extremity was prepped and draped in sterile fashion. Extremity was elevated, exsanguinated Esmarch, and tourniquet inflated. Midline incision was made followed by medial arthrotomy. I exposed the anterior medial and lateral tibial plateau and the anterior distal femur. Bovie and aqua mantis were used for hemostasis. I excised the anterior meniscal tissue with Bovie. I excised a portion of the fat pad with Bovie. The patella was everted and the knee flexed. I drilled the distal femur and suctioned the hole to reduce the risk of fat emboli. I inserted intramedullary guide with 5 degree valgus setting. I pinned the distal femoral cutting block anteriorly. Intramedullary jessi was removed. Distal femoral cut was made and the block removed. I brought my attention to the tibia setting up the external cutting jig for the tibia paying attention to slope, rotation and varus valgus alignment. I set the depth and pinned the block. I used the external alignment jessi to aid in checking alignment. Bone cut was made and bone removed releasing soft tissue attachments with Bovie. Cutting block removed. I then checked the extension gap and deemed adequate and removed the femur and tibia pins. I flexed the knee and applied the femoral sizing guide to the femur. I checked the size and external rotation setting at 90 degrees to Whitesides line and checking the epicondylar axis. I drilled the holes then removed the sizing guide and pin. I then tapped on the 4 in 1 cutting block and checked with the alix wing anteriorly to make sure that I would not notch then pinned the block. Cuts were made and the block and pins were removed. Bone was removed with curved osteotome. I used a rongeur to remove any remaining osteophytes at the femur and tibia. I then used a [employer] reset to open up the back alternating between the medial and lateral side. Any remaining meniscal tissue was excised with scalpel. I used curved osteotome, curette and rongeur to remove any posterior osteophytes. I prophylactically coagulated with aqua mantis. I then tapped on the template for the box cut and pinned it. Box cut was made and bone removed. Template and pin removed. I then tapped on the femoral trial. I then brought my attention back to the tibia sizing it. I used the external alignment jessi to make sure that rotation and alignment were good. I made a Bovie yuliana at the tibial tray yuliana identifying rotation for later use. I tried various tibial polytrials. [I then brought my attention to the patella. I sequentially dissected soft tissue with Bovie. I checked the thickness with caliper. I set the appropriate depth of cut on the cutting guide. I attached the cutting guide made my cut. I then sized the patella and made my drill holes. I then placed the patella trial with appropriate depth based on overall precut thickness. ] The patella tracked nicely without thumb pressure. I removed the trials. I pinned the tray and used the reamer and keel punch. The implants were brought into the field while bone preparation was started. I used both normal saline irrigation and the CarboJet to prepare the bone. I used the bone from the cuts to graft the femoral tunnel. Once cement was ready I applied cement to the tibial implant and tibial bone tapped it on and removed excess cement in usual fashion. In similar fashion I tapped on the femoral implant. I inserted the trial polyethylene and brought the knee into 30 degrees flexion. [I then applied the patella implant in similar fashion holding pressure with the pressurization device.] I irrigated with bacisurge irrigant. Once cement cured, I checked stability and range of motion as well as patella tracking. tourniquet was released and hemostasis maintained with aqua mantis. I inserted the polyethylene and again checked stability. I used a 2 grams of vancomycin half of which was placed deep and half superficial. I repaired the extensor mechanism with the knee in flexion with #1 Ethibond interrupted [id number]. Deep subcutaneous tissue was closed with 0 Vicryl. Superficial subcutaneous tissue was closed with 2-0 vicryl interrupted. Skin was closed with salma. I then applied the [yanick closed wound suction]. Patient tolerated the procedure well and was brought to recovery room in stable condition. Condition Stable Disposition Still a Patient WILL HAIR MD Dec 24, 2024 12:00
[2024-12-24 12:07] VITALS: PULSE 60; RESP 15
[2024-12-24] MEDS ORDERED: ONDANSETRON HCL 4 MG/2 ML VIAL IV PRN (12:15)
[2024-12-24] MEDS ORDERED: FLUMAZENIL 0.1 MG/ML INJ 10ML MDV IV PRN (12:15)
[2024-12-24] MEDS ORDERED: NALOXONE HCL 0.4 MG/ML VIAL IV PRN (12:15)
[2024-12-24] MEDS ORDERED: hydrALAZINE HCL 20 MG/ML VL IV PRN (12:15)
[2024-12-24] MEDS ORDERED: HYDROmorphone HCL 2 MG/ML VL/or syr IV PRN (12:15)
[2024-12-24] MEDS ORDERED: fentaNYL CITRATE 100 MCG/2 ML VL IV PRN (12:15)
[2024-12-24] MEDS: GABAPENTIN 100 MG CAP ONE (13:08)
[2024-12-24] MEDS: ACETAMINOPHEN IV 100 ML IV ONE (13:08)
[2024-12-24] MEDS: CELECOXIB 100 MG CAP ONE (13:08)
[2024-12-24] MEDS: ACETAMINOPHEN 325 MG TAB PO SCH (13:10)
--- NOTE | 2024-12-24 13:22 | DVH ---
CLINICAL INDICATION: postop TECHNIQUE: 3 radiographic views of the left knee were obtained. Comparison: None FINDINGS/IMPRESSION: Postop changes from a left total knee arthroplasty is noted. Skin closure salma are noted anteriorly. Patella appears normal. Appears to be some air in the joint space likely postoperative.
[2024-12-24 16:17] VITALS: O2SAT 94
[2024-12-24] MEDS: SODIUM CHLORIDE 0.9% 1,000 ML IV SCH (16:51)
[2024-12-24] MEDS: ceFAZolin 2 GM/D5W50ml 50 ML IV SCH (16:51)
[2024-12-24 17:00] VITALS: BP 142/78; PULSE 61; RESP 19; TEMP 97.9; O2SAT 94
[2024-12-24] MEDS: ACCU-CHEK COMFORT CURVE STRIP VI SCH (17:13)
[2024-12-24] MEDS: InsuLIN REG 1unit/0.01ml Soln (100units/ml) SC SCH ×2 (17:46→21:52)
[2024-12-24] MEDS ORDERED: METFORMIN PO SCH (19:00)
[2024-12-24] MEDS ORDERED: SITAGLIPTIN PO SCH (19:00)
[2024-12-24 20:00] VITALS: PULSE 61; RESP 20; O2SAT 91
[2024-12-24 21:00] VITALS: BP 147/81; PULSE 61; RESP 20; TEMP 97.5; O2SAT 91
[2024-12-24] MEDS: PREGABALIN 25 MG CAP PO SCH (21:48)
[2024-12-24] MEDS: ACETAMINOPHEN 325 MG TAB PO PRN (21:48)
[2024-12-25 00:17] VITALS: BP 145/86; PULSE 62; RESP 16; TEMP 97.8; O2SAT 88
[2024-12-25 04:48] VITALS: BP 133/76; PULSE 69; RESP 20; TEMP 98; O2SAT 95
[2024-12-25] MEDS: ONDANSETRON HCL 4 MG/2 ML VIAL IV PRN (05:02)
[2024-12-25 06:50] LABS: Hematocrit 38.1 % (41.0-53.0); Hemoglobin 13.2 g/dL (13.5-17.5); Mean Corpuscular Hemoglobin 29.2 pg (28.0-32.0); Mean Corpuscular Volume 84.3 fL (80.0-100.0); Nucleated Red Blood Cells % 0.0 %
[2024-12-25 07:00] LABS: Anion Gap 12 (5-15); Carbon Dioxide 23 mmol/L (20-31); Chloride 103 mmol/L (98-107); Potassium 3.8 mmol/L (3.5-5.1); Sodium 138 mmol/L (136-145)
[2024-12-25 07:01] LABS: Calcium 8.9 mg/dL (8.7-10.4)
[2024-12-25 07:06] LABS: BUN/Creatinine Ratio 13.6 (10.0-20.0); Blood Urea Nitrogen 22 mg/dL (9-23)
[2024-12-25 07:08] LABS: Glucose 218 mg/dL (74-106)
[2024-12-25 08:00] VITALS: PULSE 60; RESP 16; O2SAT 92
[2024-12-25 09:00] VITALS: BP 167/91; PULSE 60; RESP 16; TEMP 98.6; O2SAT 92
[2024-12-25] MEDS: POTASSIUM CHL 20 Meq TABLET PO SCH (09:56)
[2024-12-25] MEDS: LOSARTAN POTASSIUM 25 MG TAB PO SCH (09:56)
[2024-12-25] MEDS: METOPROLOL SUCCINATE XL 50 MG TAB PO SCH (09:57)
[2024-12-25] MEDS: FUROSEMIDE 20 MG TAB PO SCH (09:57)
[2024-12-25] MEDS: EMPAGLIFLOZIN 10 MG TAB PO SCH (09:57)
--- NOTE | 2024-12-25 10:39 | DVHDS2 ---
Discharge Summary Date of Admission Dec 24, 2024 at 11:54 Date of Discharge: Dec 25, 2024 Labs/Diagnostic Data: Laboratory Results Test 12/25/24 06:09 12/25/24 05:21 POC Glucose 220 mg/dl (70-106) White Blood Count 11.8 10^3/uL (4.4-10.8) Red Blood Count 4.52 10^6/uL (4.5-5.90) Hemoglobin 13.2 g/dL (13.5-17.5) Hematocrit 38.1 % (41.0-53.0) Mean Corpuscular Volume 84.3 fL (80.0-100.0) Mean Corpuscular Hemoglobin 29.2 pg (28.0-32.0) Mean Corpuscular Hemoglobin Concent 34.6 g/dL (32.0-36.0) Red Cell Distribution Width 14.5 % (11.8-14.3) Platelet Count 175 10^3/uL (140-450) Mean Platelet Volume 8.9 fL (6.9-10.8) Neutrophils (%) (Auto) 87.9 % (37.0-80.0) Lymphocytes (%) (Auto) 5.6 % (10.0-50.0) Monocytes (%) (Auto) 6.3 % (0.0-12.0) Eosinophils (%) (Auto) 0.0 % (0.0-7.0) Basophils (%) (Auto) 0.2 % (0.0-2.0) Neutrophils # (Auto) 10.4 10 ^3/uL (1.6-8.6) Lymphocytes # (Auto) 0.7 10 ^3/uL (0.4-5.4) Monocytes # (Auto) 0.7 10 ^3/uL (0-1.3) Eosinophils # (Auto) 0 10 ^3/uL (0-0.8) Basophils # (Auto) 0 10 ^3/uL (0-0.2) Nucleated Red Blood Cells 0.0 % Sodium Level 138 mmol/L (136-145) Potassium Level 3.8 mmol/L (3.5-5.1) Chloride Level 103 mmol/L (98-107) Carbon Dioxide Level 23 mmol/L (20-31) Anion Gap 12 (5-15) Blood Urea Nitrogen 22 mg/dL (9-23) Creatinine 1.62 mg/dL (0.700-1.30) Glomerular Filtration Rate Calc 45 mL/min (>90) BUN/Creatinine Ratio 13.6 (10.0-20.0) Serum Glucose 218 mg/dL (74-106) Calcium Level 8.9 mg/dL (8.7-10.4) Other Laboratory Tests 12/25/24 05:21 Brief Hx & Hospital Course: Patient was brought to the hospital yesterday to undergo a left total knee arthroplasty. He tolerated the procedure well without complications and was kept overnight for postoperative observation. Patient has remained medically stable denying any overnight events and reports some postoperative knee pain that is being well managed with the help of pain medication. Patient reports that he was able to get up and walk with the help of physical therapy and his walker and was able to get down the jones around the nurses station and back to his room with minimal issues. Patient was otherwise feeling well denying any other complaints or concerns during my evaluation and would like to go home. Condition at Discharge: Stable Final Diagnosis/Problems List Left knee degenerative arthritis Discharge Disposition: Home Discharge Instruct/Medications Diet: Regular Activity: See Comment Activity comment: Patient to remain weight-bearing as tolerated with the assistance of a walker Follow Up/Referral: Patient instructed to follow up with our office in 10-14 days for his 1st postoperative evaluation Medications: Rx sent via our outpatient EMR system Scheduled Aspirin (Asa), 81 MG GT DAILY, (Reported) Atorvastatin Calcium (Atorvastatin Calcium), 1 TAB PO DAILY, (Reported) Furosemide (Lasix), 2 TAB PO DAILY Insulin Aspart (Novolog), 14 UNIT IJ PRN, (Reported) Losartan Potassium (Losartan Potassium), 25 MG PO DAILY, (Reported) Metoprolol Succinate (Metoprolol Succinate Er), 25 MG PO DAILY, (Reported) Potassium Chloride (Klor-Con M20), 20 MEQ PO DAILY, (Reported) Sitagliptin-Metformin Hcl (Janumet Xr), 1 TAB PO BIDPC, (Reported) Miscellaneous Medications Empagliflozin (Jardiance), 10 MG PO, (Reported) Insulin Degludec (Tresiba Flextouch), 200 UNIT SC, (Reported) Semaglutide (Ozempic), 4 MG SC, (Reported) Discharge Statement: "Patient was advised to return to the ER or call 911 if any headaches, dizziness, shortness of breath, chest pain, abdominal pain, bleeding, fevers, or worsening of medical condition. Patient was counseled about treatment plan, medications, possible side effects, patientverbalized understanding. All questions were answered to the best of my ability. This discharge took greater then 30 minutes in planning, reviewing documentation, counseling the patient, and discussing with other team members." ASSESSMENT ASSESSMENT Assessment Left knee degenerative arthritis HAN GILBERT Dec 25, 2024 10:39
--- NOTE | 2024-12-25 10:41 | DVHPN2 ---
Progress Note - Dictate Date Seen: Dec 25, 2024 Medical Necessity Reason Pt with a Central, PICC or Fol: Yes The following are medically ne: Breen Catheter Subjective Patient was lying in bed comfortably during my evaluation reports some postoperative knee pain that is being well managed with the help of pain medication. Patient reports that he was able to get up and walk with the help of physical therapy and his walker and was able to get down the jones around the nurses station and back to his bed with minimal issues. Patient is otherwise feeling well denying any other complaints or concerns during my evaluation and would like to go home. vital signs Vital Sign Date Time Temp Pulse Resp B/P (MAP) Pulse Ox O2 Delivery O2 Flow Rate FiO2 12/25/24 09:57 60 167/91 12/25/24 09:00 98.6 16 92 98.6 12/25/24 08:00 Nasal Cannula* 2 28 Total Intake and Output 12/24/24 12/24/24 12/25/24 15:00 23:00 07:00 Intake Total 220 ml 2100 ml 550 ml Output Total 175 ml 300 ml 550 ml Balance 45 ml 1800 ml 0 ml medications Current Medications Medications Dose Ordered Sig/Faizan Route Start Time Stop Time Status Last Admin Dose Admin Empaglifozin 10 mg DAILY PO 12/25/24 10:00 12/25/24 09:57 10 MG Furosemide 40 mg DAILY PO 12/25/24 10:00 12/25/24 09:57 40 MG Losartan Potassium 25 mg DAILY PO 12/25/24 10:00 12/25/24 09:56 25 MG Potassium Chloride 20 meq DAILY PO 12/25/24 10:00 12/25/24 09:56 20 MEQ Metoprolol Succinate 25 mg DAILY PO 12/25/24 10:00 12/25/24 09:57 25 MG Patient Own Medication 1 tab BIDPC PO 12/24/24 19:00 Hold Acetaminophen 650 mg Q4HP PRN PO 12/24/24 12:00 12/25/24 08:39 650 MG Acetaminophen 650 mg Q6HR PO 12/24/24 12:00 12/25/24 05:02 650 MG Pregabalin 50 mg BID PO 12/24/24 22:00 12/25/24 09:55 50 MG Oxycodone HCl 5 mg Q4HP PRN PO 12/24/24 12:00 Oxycodone HCl 10 mg Q4HP PRN PO 12/24/24 12:56 Aspirin 81 mg BID PO 12/25/24 10:00 12/25/24 09:57 81 MG Diagnostic Test (Pha) 1 strip ACHS 12/24/24 17:00 12/25/24 06:10 1 STRIP Insulin Human Regular -Look-Alike Drug Name HS SC 12/24/24 22:00 12/24/24 21:52 6 UNITS Insulin Human Regular AC SC 12/24/24 17:00 12/25/24 06:11 6 UNITS Dextrose 50 ml UD PRN IV 12/24/24 12:00 Sodium Chloride 1,000 ml @ 125 mls/hr Q8H IV 12/24/24 12:00 12/25/24 04:00 125 MLS/HR Oxycodone HCl 10 mg ONCE PRN PO 12/24/24 12:15 Ondansetron HCl 4 mg Q6HPRN PRN IV 12/25/24 04:30 12/25/24 05:02 4 MG objective A&O x4 in no acute distress Knee range of motion grossly limited with pain on movement Sintia dressing clean, dry, intact, and maintaining suction No distal edema or calf tenderness to palpation Neurovascularly intact with cap refill less than 2 seconds laboratory and microbiology Laboratory Tests 12/25/24 05:21 Test 12/25/24 05:21 Range/Units Serum Glucose 218 H 74-106 mg/dL Assessment/Plan Patient to be discharged home and advised to remain weight-bearing as tolerated with the assistance of a walker. Breen to be removed before discharge. I instructed the patient to follow up with our office in 10-14 days for his 1st postoperative evaluation and to call our office if he has any questions or concerns. Rx sent via our outpatient EMR system. Patient understood and agreed. Plan discussed with: Patient HAN GILBERT Dec 25, 2024 10:41
[2024-12-25 12:01] VITALS: BP 141/86; PULSE 66; RESP 16; TEMP 37; O2SAT 93
[2024-12-25 12:47] VITALS: BP 141/86; PULSE 66; RESP 16; TEMP 98.3; O2SAT 93
[2024-12-25] MEDS ORDERED: KETAMINE 50mg/ML 1ml syringe IM ONE (12:49)
--- NOTE | 2024-12-26 12:52 | DVHINCON2 ---
Date Seen: Dec 24, 2024 Referring Physician Orthopedics. Reason for Consultation Medical management. History of Present Illness 69-year-old male with a known history of insulin-dependent diabetes mellitus type 2, hypertension, dyslipidemia who was brought in by Orthopedics for elective procedure for left knee degenerative joint disease status post left total knee arthroplasty. Patient does have known history of diabetes mellitus type 2 hypertension denies any current any chest pain shortness of breaths hematuria dysuria. Past Medical History Diabetes mellitus type 2 Hypertension Dyslipidemia Degenerative joint disease of the left knee Past Surgical History Status post left total knee arthroplasty. Previous history of right knee surgery. Family History: Cerebrovascular accident (CVA) G8 FATHER Diabetes mellitus G8 FATHER Allergies: Coded Allergies: NO KNOWN ALLERGIES (Unverified , 04/29/19) Home Meds Active Scripts Furosemide (Lasix) 20 Mg Tb, 2 TAB PO DAILY, #90 TAB 1 Refill Prov:LUZ JACOBSEN MD 05/07/24 Reported Medications Insulin Aspart (Novolog) 100 Unit/Ml Inj, 14 UNIT IJ PRN, INJ 12/20/24 Semaglutide (Ozempic) 4 Mg/3 Ml Inj, 4 MG SC, INJ 02/17/22 Insulin Degludec (Tresiba Flextouch) 200 Unit/Ml Inj, 200 UNIT SC, INJ 02/17/22 Empagliflozin (Jardiance) 10 Mg Tab, 10 MG PO, TAB 02/17/22 Losartan Potassium (Losartan Potassium) 25 Mg Tab, 25 MG PO DAILY for 30 Days, MG 02/17/22 Aspirin (Asa) 81 Mg Ch, 81 MG GT DAILY, TAB.CHEW 04/29/19 Sitagliptin-Metformin Hcl (JANUMET XR) 1 Tab Tab, 1 TAB PO BIDPC, TAB 04/29/19 Atorvastatin Calcium (ATORVASTATIN CALCIUM) 80 Mg Tab, 1 TAB PO DAILY, #30 TAB 5 Refills 04/29/19 Metoprolol Succinate (Metoprolol Succinate Er) 25 Mg Tab, 25 MG PO DAILY, TAB 04/29/19 Potassium Chloride (Klor-Con M20) 20 Meq Tab, 20 MEQ PO DAILY, TAB 04/29/19 Review of Systems Twelve review of system are negative besides mentioned above. Vital Signs Vital Signs Date Time Temp Pulse Resp B/P (MAP) Pulse Ox O2 Delivery O2 Flow Rate FiO2 12/25/24 12:47 98.3 66 16 141/86 (104) 93 98.3 12/25/24 08:00 Nasal Cannula* 2 28 Physical Exam HEENT pupils are reactive Neck is supple CV is S1-S2 regular rate and rhythm Respiratory are clear GI positive bowel sound Extremity no edema [employer] no motor deficit besides left lower extremity can not be tested because of recent left total knee arthroplasty. Labs/Diagnostic Data Labs Test 12/25/24 11:27 12/25/24 05:21 Range/Units POC Glucose 293 H 70-106 mg/dl White Blood Count 11.8 H 4.4-10.8 10^3/uL Red Blood Count 4.52 4.5-5.90 10^6/uL Hemoglobin 13.2 L 13.5-17.5 g/dL Hematocrit 38.1 L 41.0-53.0 % Mean Corpuscular Volume 84.3 80.0-100.0 fL Mean Corpuscular Hemoglobin 29.2 28.0-32.0 pg Mean Corpuscular Hemoglobin Concent 34.6 32.0-36.0 g/dL Red Cell Distribution Width 14.5 H 11.8-14.3 % Platelet Count 175 140-450 10^3/uL Mean Platelet Volume 8.9 6.9-10.8 fL Neutrophils (%) (Auto) 87.9 H 37.0-80.0 % Lymphocytes (%) (Auto) 5.6 L 10.0-50.0 % Monocytes (%) (Auto) 6.3 0.0-12.0 % Eosinophils (%) (Auto) 0.0 0.0-7.0 % Basophils (%) (Auto) 0.2 0.0-2.0 % Neutrophils # (Auto) 10.4 H 1.6-8.6 10 ^3/uL Lymphocytes # (Auto) 0.7 0.4-5.4 10 ^3/uL Monocytes # (Auto) 0.7 0-1.3 10 ^3/uL Eosinophils # (Auto) 0 0-0.8 10 ^3/uL Basophils # (Auto) 0 0-0.2 10 ^3/uL Nucleated Red Blood Cells 0.0 % Sodium Level 138 136-145 mmol/L Potassium Level 3.8 3.5-5.1 mmol/L Chloride Level 103 98-107 mmol/L Carbon Dioxide Level 23 20-31 mmol/L Anion Gap 12 5-15 Blood Urea Nitrogen 22 9-23 mg/dL Creatinine 1.62 H 0.700-1.30 mg/dL Glomerular Filtration Rate Calc 45 >90 mL/min BUN/Creatinine Ratio 13.6 10.0-20.0 Serum Glucose 218 H 74-106 mg/dL Calcium Level 8.9 8.7-10.4 mg/dL Assessment 69-year-old male with a known history of diabetes mellitus type 2, hypertension, dyslipidemia presented to the hospital for elective procedure. 1. Diabetes mellitus type 2 2. Hypertension 3. Dyslipidemia 4. Degenerative joint disease status post left total knee arthroplasty 5. Morbid obesity classI -thank you very much for the consultation, Accu-Cheks q.a.c. and HS low-dose sliding scale, resume home medications, discharge plan per Orthopedics. Problems(with codes): (1) Diabetes (2) Hypertension Plan discussed with: Patient Date of Service: Dec 24, 2024 Billing Provider: PETE FLORES MD Common Visit Codes: NOT BILLABLE PETE FLORES MD Dec 26, 2024 12:52
== END 2024-12-25 13:40 | disposition home or self-care (01) | DRG 470 ==
LOC: SUR 07:45 → OVERFLOW 11:54 → WEST WING 15:48
PROVIDERS: ADMIT Orthopaedic Surgery; ATTEND Orthopaedic Surgery
PROC: 0SRD0J9 Replacement of Left Knee Joint with Synthetic Substitute, Cemented, Open Approach (ICD-10-PCS; principal; 2024-12-24 09:52)
DX: M17.12 Unilateral primary osteoarthritis, left knee (principal); I10 Essential (primary) hypertension; E78.5 Hyperlipidemia, unspecified; E11.9 Type 2 diabetes mellitus without complications; E66.01 Morbid (severe) obesity due to excess calories; Z79.4 Long term (current) use of insulin; Z82.3 Family history of stroke; Z83.3 Family history of diabetes mellitus; Z68.33 Body mass index [BMI] 33.0-33.9, adult; Z79.82 Long term (current) use of aspirin; Z79.899 Other long term (current) drug therapy
CPT/HCPCS: 36415; 73562; 80048; 82962; 85025; 86850; 86900; 86901; 97163; G0378; J0131; J1100; J1815; J1885; J2405; J2704

== ENCOUNTER 2024-12-30 10:19 | Emergency (ER) | payer OTHER ==
[~2024-12-30] VITALS: Ht 182.9 cm; Wt 115.0 kg
--- NOTE | 2024-12-30 10:54 | ED.PDOC ---
Musculoskeletal HPI Comments This is a 69 year old male BIB presenting to the ED with chief complaint of left knee pain and swelling. Patient reports that he had a left knee replacement performed a week ago, however, since Monday he has been experiencing worsening pain and swelling, making it difficult to perform physical therapy. Patient r elays that he called his Orthopedist today and they advised him to come to the ED for further evaluation. Patient notes that he feels his lower leg swelling and becoming cold, believing his wrapping to be too tight. Patient states that his next Ortho appointment is next week. Patient reports immediate relief when his leg wrapping was undone and wrapped looser. Patient denies any numbness, redness, heat, chest pain, SOB, or weakness. Chief Complaint: Lower Extremity Time Seen by MD: 10:51 Reviewed Notes: Nurses Notes, Medications, Allergies Allergies: Coded Allergies: NO KNOWN ALLERGIES (Unverified , 04/29/19) Home Meds Active Scripts Furosemide (Lasix) 20 Mg Tb, 2 TAB PO DAILY, #90 TAB 1 Refill Prov:LUZ JACOBSEN MD 05/07/24 Reported Medications Insulin Aspart (Novolog) 100 Unit/Ml Inj, 14 UNIT IJ PRN, INJ 12/20/24 Semaglutide (Ozempic) 4 Mg/3 Ml Inj, 4 MG SC, INJ 02/17/22 Insulin Degludec (Tresiba Flextouch) 200 Unit/Ml Inj, 200 UNIT SC, INJ 02/17/22 Empagliflozin (Jardiance) 10 Mg Tab, 10 MG PO, TAB 02/17/22 Losartan Potassium (Losartan Potassium) 25 Mg Tab, 25 MG PO DAILY for 30 Days, MG 02/17/22 Aspirin (Asa) 81 Mg Ch, 81 MG GT DAILY, TAB.CHEW 04/29/19 Sitagliptin-Metformin Hcl (JANUMET XR) 1 Tab Tab, 1 TAB PO BIDPC, TAB 04/29/19 Atorvastatin Calcium (ATORVASTATIN CALCIUM) 80 Mg Tab, 1 TAB PO DAILY, #30 TAB 5 Refills 04/29/19 Metoprolol Succinate (Metoprolol Succinate Er) 25 Mg Tab, 25 MG PO DAILY, TAB 04/29/19 Potassium Chloride (Klor-Con M20) 20 Meq Tab, 20 MEQ PO DAILY, TAB 04/29/19 Information Source: Patient, Spouse Mode of Arrival: Wheelchair Location: Left Extremity Location: Knee Timing: Days Prehospital treatment: None Severity: Moderate Able to Move Extremity: Yes Bear Weight: No Pain: Moderate Mechanism: Spontaneous Circumstances: Spontaneous Onset of Symptoms: Spontaneous Symptoms: Swelling, Pain DVT Risk Factors: Recent surgery Last Tetanus: UTD History of: Knee Operation Associated signs and symptoms: Knee pain Past Medical History PAST MEDICAL HISTORY: CAD, DM, HTN, [place] Surgical History: Pacemaker, PTCA Surgical History (Other): Left knee replacement Family History Family History: Reviewed,noncontributory to illness, No family hx of Cancer, No family hx of Liver nory Social History Smoker: Cigarettes Alcohol: Occasionally Drugs: Denies Drug Use Lives In: Home Constitutional: denies: chills, diaphoresis, fatigue, fever, malaise, sweats, weakness, others EENTM: denies: blurred vision, double vision, ear bleeding, ear discharge, ear drainage, ear pain, ear ringing, eye pain, eye redness, hearing loss, mouth pain, mouth swelling, nasal discharge, nose bleeding, nose congestion, nose pain, photophobia, tearing, throat pain, throat swelling, voice changes, others Respiratory: denies: cough, hemoptysis, orthopnea, SOB at rest, shortness of breath, SOB with excertion, stridor, wheezing, others Cardiovascular: denies: chest pain, dizzy spells, diaphoresis, Dyspnea on exertion, edema, irregular heart beat, left arm pain, lightheadedness, palpitations, PND, syncope, others Gastrointestinal: denies: abdomen distended, abdominal pain, blood streaked bowels, constipated, diarrhea, dysphagia, difficulty swallowing, hematemesis, melena, nausea, poor appetite, poor fluid intake, rectal bleeding, rectal pain, vomiting, others Genitourinary: denies: burning, dysuria, flank pain, frequency, hematuria, incontinence, penile discharge, penile sore, pain, testicle pain, testicle swelling, urgency, others Neurological: denies: dizziness, fainting, headache, left sided numbness, left sided weakness, numbness, paresthesia, pre-existing deficit, right sided numbness, right sided weakness, seizure, speech problems, tingling, tremors, weakness, others Musculoskeletal: reports: others (Left knee swelling and pain); denies: back pain, gout, joint pain, joint swelling, muscle pain, muscle stiffness, neck pain Integumetry: denies: bruises, change in color, change in hair/nails, dryness, laceration, lesions, lumps, rash, wounds, others Allergic/Immunocompromised: denies: Difficulty Healing, Frequent Infections, Hives, Itching, others Hematologic/Lymphatic: denies: anemia, blood clots, easy bleeding, easy bruising, swollen glands, others Endocrine: denies: excessive hunger, excessive sweating, excessive thirst, excessive urination, flushing, intolerance to cold, intolerance to heat, unexplained weight gain, unexplained weight loss, others Psychiatric: denies: anxiety, bipolar disorder, depression, hopeless, panic disorder, schizophrenia, sleepless, suicidal, others All Other Systems: Reviewed and Negative Physical Exam General Appearance: Moderate Distress, Normal HEENT: Normal ENT Inspection, Pharynx Normal, TMs Normal Neck: Full Range of Motion, Non-Tender, Normal, Normal Inspection Respiratory: Chest Non-Tender, Lungs Clear, No Accessory Muscle Use, No Respiratory Distress, Normal Breath Sounds Cardiovascular: No Edema, No JVD, No Murmur, No Gallop, Normal Peripheral Pulses, Regular Rate/Rhythm Breast Exam: Deferred Gastrointestinal: No Organomegaly, Non Tender, No Pulsatile Mass, Normal Bowel Sounds, Soft Genitalia: Epididymis Pelvic: Deferred Rectal: Deferred Extremities: Decreased range of motion, No calf tenderness, Normal capillary refill, Normal inspection, Normal range of motion, Non-tender, No pedal edema, Other (Status post total knee replacement left knee dressing too tight is distal cold and the knees very painful) Neurologic: Alert, tower attendant II-XII nml as Tested, No Motor Deficits, Normal Affect, Normal Mood, No Sensory Deficits Cerebellar Function: Normal Reflexes: Normal Skin: Dry, Normal Color, Warm Peripheral Pulses: 1+ carotid (R), 1+ carotid (L) Lymphatic: No Adenopathy Was a procedure done? Was a procedure done?: No Differential Diagnosis EXT Differential Diagnosis: Neurovascular injury Other Differential Diagnosis Post total knee surgery compression left knee X-Ray, Labs, Meds, VS Vital Signs Date Time Temp Pulse Resp B/P (MAP) Pulse Ox O2 Delivery O2 Flow Rate FiO2 12/30/25 10:20 100.1 63 15 138/96 96 100.1 X-Ray, Labs, Meds, VS Comment Patient came to the emergency department because of severe left knee pain Patient has a compressive dressing which makes he has distal leg cold and painful Compressive dressing was changed into a light dressing patient is much better he will follow up with his doctor Time of 1ST Reevaluation: 11:51 Reevaluation 1ST: Improved Time of 2ND Reevaluation: 11:10 Reevaluation 2ND: Improved Consultation: PCP, Other (Orthopedic surgery) Patient Education/Counseling: Diagnosis, Treatment, Prognosis, Need For Follow Up Family Education/Counseling: Diagnosis, Treatment, Prognosis, Need For Follow Up, Other (Spouse at bedside) Departure 1 Departure Time of Disposition: 11:01 Impression: Primary Impression: Status post total knee replacement Qualified Codes: Z96.652 - Presence of left artificial knee joint Additional Impression: Renewing dressing Disposition: 01 HOME / SELF CARE / HOMELESS Condition: Fair Additional Instructions: Your physical therapy Discharged With: Self, Spouse Critical Care Note Critical Care Time?: No Stability Stability form required: No Heart Score Heart Score: Heart Score Response (Comments) Value History N/A 0 EKG N/A 0 Age >65 2 Risk Factors 1 or 2 risk factors 1 Troponin N/A 0 Total 3 I personally scribed for MARIA E KNOTT MD ([email or web address]) on 12/30/24 at 10:54. Electronically submitted by Jeramy Hoyos ([email or web address]). MARIA E KNOTT MD Dec 30, 2024 10:54
[2024-12-30 11:44] VITALS: BP 146/61; PULSE 61; RESP 17; TEMP 98.7; O2SAT 96
== END 2024-12-30 11:50 | disposition home or self-care (01) ==
LOC: ER 10:19
DX: Z96.652 Presence of left artificial knee joint (principal); F17.210 Nicotine dependence, cigarettes, uncomplicated; F10.90 Alcohol use, unspecified, uncomplicated; I10 Essential (primary) hypertension; E11.9 Type 2 diabetes mellitus without complications; I25.10 Atherosclerotic heart disease of native coronary artery without angina pectoris; I25.2 Old myocardial infarction; Z79.899 Other long term (current) drug therapy; Z79.82 Long term (current) use of aspirin; Z95.0 Presence of cardiac pacemaker; Z48.00 Encounter for change or removal of nonsurgical wound dressing; Y90.9 Presence of alcohol in blood, level not specified